=== PATIENT | male | born 1965 | race Caucasian/White ===

== ENCOUNTER 2016-11-11 06:47 | Emergency (ER) | payer OTHER ==
[2016-11-11 07:14] VITALS: BP 140/86
[2016-11-11] MEDS ORDERED: Acetaminophen 325 MG Tab PO ONE (07:28)
[2016-11-11] MEDS ORDERED: predniSONE 20 MG Tab PO ONE (07:28)
[2016-11-11] MEDS ORDERED: Ketorolac 60 MG/2 ML SDV IM ONE (07:28)
--- NOTE | 2016-11-11 07:36 | EDM.PDOC ---
ED HPI GENERAL MEDICAL PROBLEM - General Chief Complaint: Back Pain or Injury Stated Complaint: LOWER BACK PAIN Time Seen by Provider: 11/11/16 07:11 Source of Information: Reports: Patient, RN Notes Reviewed - History of Present Illness INITIAL COMMENTS - FREE TEXT/NARRATIVE: 51-year-old male comes in with severe right low back pain. He states he injured the back yesterday afternoon tightening lug bolts on the tire of a tractor. Sudden onset of pain in the right low back, sacroiliac area. The pain is constant although he can fine positions where it is not as bad. However sitting walking twisting aggravate the pain to where it is quite severe. Is not radiating down the lower leg. No peripheral numbness or tingling. 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 50 mg PO DAILY 03/09/14 [History] Aspirin 325 mg PO Q4HR PRN 06/12/14 [History] Hydrocodone/Acetaminophen [Vicodin 5-300 mg Tablet] 1 tab PO Q4HR PRN 06/12/14 [ History] Ibuprofen 200 mg PO Q6HR PRN 06/12/14 [History] Naproxen [Naprosyn] 500 mg PO Q12HR #14 tablet 11/11/16 [Rx] oxyCODONE HCl/Acetaminophen [Percocet 5-325 mg Tablet] 1 each PO Q6HR PRN #14 tablet 11/11/16 [Rx] Past Medical History - Past Health History Medical/Surgical History: Denies Medical/Surgical History Neurological History: Reports: Concussion Psychiatric History: Reports: Anxiety, Depression - Past Surgical History HEENT Surgical History: Reports: Tonsillectomy Other Neurological Surgeries/Procedures: c spine fracture Social & Family History - Tobacco Use Smoking Status *Q: Never Smoker Years of Tobacco use: 10 Second Hand Smoke Exposure: No - Caffeine Use Caffeine Use: Reports: Coffee - Alcohol Use Days Per Week of Alcohol Use: 3 Number of Drinks Per Day: 2 Total Drinks Per Week: 6 - Recreational Drug Use Recreational Drug Use: No Drug Use in Last 12 Months: Yes Recreational Drug Type: Reports: Marijuana/Hashish ED ROS GENERAL - Review of Systems Review Of Systems: See Below Constitutional: Denies: Fever, Chills HEENT: Reports: No Symptoms Respiratory: Denies: Shortness of Breath Cardiovascular: Denies: Chest Pain GI/Abdominal: Denies: Abdominal Pain, Nausea, Vomiting Musculoskeletal: Reports: Back Pain (right low back). Denies: Leg Pain Skin: Reports: No Symptoms Neurological: Denies: Numbness, Tingling ED EXAM,LOWER BACK PAIN/INJURY - Physical Exam Exam: See Below General Appearance: Alert, Moderate Distress Throat/Mouth: Normal Inspection Head: Atraumatic. No: Facial Swelling Neck: Supple, Full Range of Motion Respiratory/Chest: No Respiratory Distress, Lungs Clear Cardiovascular: Regular Rate, Rhythm Back Exam: Other (tender over right sacroiliac joint, back otherwise nontender) . No: Vertebral Tenderness Neurological: Alert, No Motor/Sensory Deficits Skin Exam: Warm, Dry, Normal Color Course - Vital Signs Last Recorded V/S: Last Vital Signs Temp 98.1 F 11/11/16 07:10 Pulse 71 11/11/16 07:10 Resp 18 11/11/16 07:10 BP 140/86 11/11/16 07:10 Pulse Ox 99 11/11/16 07:10 - Orders/Labs/Meds Meds: Medications Discontinued Medications Generic Name Dose Route Start Last Admin Trade Name Roland PRN Reason Stop Dose Admin Acetaminophen 975 mg 11/11/16 07:28 11/11/16 07:42 Tylenol PO 11/11/16 07:29 975 mg NOW ONE Administration Ketorolac Tromethamine 60 mg 11/11/16 07:28 11/11/16 07:39 Toradol IM 11/11/16 07:29 60 mg ONETIME ONE Administration Prednisone 40 mg 11/11/16 07:28 11/11/16 07:42 Prednisone PO 11/11/16 07:29 40 mg ONETIME ONE Administration Departure - Departure Time of Disposition: 07:29 Disposition: Home, Self-Care 01 Condition: Fair Clinical Impression: Back pain due to injury - Discharge Information Prescriptions: oxyCODONE HCl/Acetaminophen [Percocet 5-325 mg Tablet] 1 each PO Q6HR PRN #14 tablet PRN Reason: Pain Naproxen [Naprosyn] 500 mg PO Q12HR #14 tablet Instructions: Back Injury Prevention, [id number], Back Pain, Adult, Easy-to- Read Referrals: Kevin Gordon Jr, MD [Primary Care Provider] - Forms: ED Department Discharge Additional Instructions: rest back, no heavy lifting. alternate ice and heat as needed, Naprosyn 500 mg twice daily for pain and inflammation, prednisone steroid medication as prescribed for inflammation, Tylenol 3-4 times daily for extra pain relief or Percocet if needed for severe pain, do not drive or operate equipment when taking Percocet, do not take Tylenol and Percocet at the same time, consider a course of physical therapy to try to promote healing, see Dr. Gordon next week as planned
== END 2016-11-11 08:22 | disposition home or self-care (01) ==
LOC: JD.ED 06:47
DX: M54.5 Low back pain (principal); Z88.0 Allergy status to penicillin; Z79.82 Long term (current) use of aspirin; Z79.899 Other long term (current) drug therapy
CPT/HCPCS: 96372; 99283; A9270; J1885

== ENCOUNTER 2024-04-20 16:48 | Emergency (ER) | payer MEDICAID, OTHER ==
[2024-04-20] MEDS ORDERED: Naloxone 0.4 MG/ML SDV IVPUSH PRN (17:01)
[2024-04-20 17:03] VITALS: PULSE 96
[2024-04-20] MEDS: Sodium Chloride 0.9% 1,000 ML IV ONE (17:10)
[2024-04-20] MEDS: Ondansetron 4 MG/2 ML SDV IVPUSH ONE ×2 (17:10)
[2024-04-20] MEDS: HYDROmorphone 1 MG/ML Syringe IVPUSH ONE (17:11)
[2024-04-20 17:31] LABS: BASOPHILS PERCENT AUTO 0.1 % (0.0-1.0); EOSINOPHILS ABSOLUTE AUTO 0.2 K/mm3 (0.0-0.4); EOSINOPHILS PERCENT AUTO 1.1 % (0.0-6.0); HEMATOCRIT 55.3 % (42.0-52.0); HEMOGLOBIN 18.9 gm/dl (14.0-18.0); IMMATURE GRAN ABSOLUTE AUTO 0.13 K/mm3 (0.00-0.05); LYMPHOCYTES ABSOLUTE AUTO 0.9 K/mm3 (1.0-4.8); LYMPHOCYTES PERCENT AUTO 6.8 % (24.0-44.0); MEAN CORPUSCULAR HEMOGLOBIN 31.2 pg (28.0-32.0); MEAN CORPUSCULAR HGB CONC 34.2 g/dl (32.0-36.0); MEAN CORPUSCULAR VOLUME 91.3 fl (83.0-99.0); MEAN PLATELET VOLUME 9.5 fl (9.4-12.4); MONOCYTES PERCENT AUTO 7.6 % (0.0-8.0); NEUTROPHILS ABSOLUTE AUTO 11.3 K/mm3 (1.8-7.7); NEUTROPHILS PERCENT AUTO 83.4 % (41.0-71.0); PLATELET COUNT,PLT 254 K/mm3 (150-400); RED BLOOD CELL COUNT 6.06 M/mm3 (4.52-5.90); WHITE BLOOD CELL COUNT,WBC 13.48 K/mm3 (3.9-11.3)
[2024-04-20] MEDS: Iopamidol 612 MG/ML 100 ML Bottle IVPUSH ONE (18:05)
[2024-04-20 18:06] LABS: A/G RATIO 1.2 (1-2); ALBUMIN 3.8 g/dl (3.4-5.0); BUN/CREATININE RATIO 18.3 (14-18); CALCIUM 9.2 mg/dL (8.5-10.1); CREATININE 1.2 mg/dL (0.7-1.3); EST CRCL DRUG DOSING (CG) 68.85 mL/min; PROTEIN TOTAL,TP 7.1 g/dl (6.4-8.2)
[2024-04-20 18:59] VITALS: BP 155/97
[2024-04-20 19:04] LABS: APPEARANCE,URINE CLEAR (Clear); BILIRUBIN,URINE NEGATIVE (Negative); COLOR,URINE YELLOW (Yellow); GLUCOSE,URINE NEGATIVE (Negative); KETONES,URINE TRACE (Negative); LEUKOCYTE ESTERASE,URINE NEGATIVE (Negative); NITRITE,URINE NEGATIVE (Negative); OCCULT BLOOD,URINE NEGATIVE (Negative); PROTEIN,URINE TRACE (Negative); UROBILINOGEN,URINE 0.2 (0.2-1.0)
[2024-04-20 19:53] LABS: BACTERIA,URINE RARE /hpf (FEW); RBC,URINE 0-5 /hpf (0-5); SQUAMOUS EPITHELIAL CELLS,UR 0-5 /hpf (0-5); WBC,URINE 0-5 /hpf (0-5)
[2024-04-20 19:54] LABS: MUCUS,URINE FEW /hpf (FEW)
== END 2024-04-20 19:36 | disposition home or self-care (01) ==
LOC: JD.ED 16:48
DX: S20.212A Contusion of left front wall of thorax, initial encounter (principal); Z88.0 Allergy status to penicillin; Z79.82 Long term (current) use of aspirin; Z79.899 Other long term (current) drug therapy; W18.39XA Other fall on same level, initial encounter; Y93.89 Activity, other specified
CPT/HCPCS: 36415; 70450; 71045; 71260; 72125; 74177; 80053; 81001; 85025; 96361; 96374; 96375; 99285; J1171; J2405; J7030; Q9967

== ENCOUNTER 2024-04-28 13:22 | Emergency (ER) | payer MEDICAID ==
[2024-04-28 13:37] VITALS: BP 151/111; PULSE 82
== END 2024-04-28 15:40 | disposition left against medical advice (07) ==
LOC: JD.ED 13:22
DX: R07.81 Pleurodynia (principal); Z88.0 Allergy status to penicillin; Z79.899 Other long term (current) drug therapy; W19.XXXA Unspecified fall, initial encounter
CPT/HCPCS: 71101-26-RT; 71101-RT; 99282; 99283

== ENCOUNTER 2024-12-12 13:24 | Emergency (ER) | payer MEDICAID ==
[2024-12-12 15:29] VITALS: BP 136/96; PULSE 74
== END 2024-12-12 15:10 | disposition home or self-care (01) ==
LOC: JD.ED 13:24
DX: M25.512 Pain in left shoulder (principal); Z88.0 Allergy status to penicillin; W19.XXXA Unspecified fall, initial encounter
CPT/HCPCS: 70450; 70450-26; 72125; 72125-26; 73030-26-LT; 73030-LT; 73080-26-LT; 73080-LT; 73100-26-LT; 73100-LT; 99284

== ENCOUNTER 2024-12-17 17:52 | Emergency (ER) | payer MEDICAID ==
[2024-12-17 18:03] VITALS: PULSE 83
[2024-12-17] MEDS ORDERED: Sodium Chloride 0.9% 10 ML Syringe FLUSH PRN (18:11)
[2024-12-17 18:18] LABS: BASOPHILS ABSOLUTE AUTO 0.1 K/mm3 (0.0-0.2); BASOPHILS PERCENT AUTO 0.4 % (0.0-1.0); EOSINOPHILS ABSOLUTE AUTO 0.2 K/mm3 (0.0-0.4); EOSINOPHILS PERCENT AUTO 1.2 % (0.0-6.0); IMMATURE GRAN ABSOLUTE AUTO 0.19 K/mm3 (0.00-0.05); IMMATURE GRAN PERCENT AUTO 1.4 % (0.0-0.4); LYMPHOCYTES ABSOLUTE AUTO 1.4 K/mm3 (1.0-4.8); LYMPHOCYTES PERCENT AUTO 10.0 % (24.0-44.0); MEAN PLATELET VOLUME 9.4 fl (9.4-12.4); MONOCYTES ABSOLUTE AUTO 1.0 K/mm3 (0.0-0.8); MONOCYTES PERCENT AUTO 7.6 % (0.0-8.0); NEUTROPHILS ABSOLUTE AUTO 10.8 K/mm3 (1.8-7.7); NEUTROPHILS PERCENT AUTO 79.4 % (41.0-71.0); NRBC ABSOLUTE 0.00 (0.00-0.02); NRBC PERCENT 0.0 % (0.0-0.2); PLATELET COUNT,PLT 263 K/mm3 (150-400); RED BLOOD CELL COUNT 5.72 M/mm3 (4.52-5.90); WHITE BLOOD CELL COUNT,WBC 13.56 K/mm3 (3.9-11.3)
[2024-12-17] MEDS: Alum Hydrox/Mag Hydrox/Simeth 30 ML, Lidocaine 2% 15 ML PO ONE (18:35)
[2024-12-17 18:54] LABS: A/G RATIO 1.1 (1-2); ALANINE AMINOTRANSFERASE,ALT 58.0 U/L (16-63); ASPARTATE AMNIOTRANSFERASE,AST 33.0 U/L (15-37); BILIRUBIN TOTAL 0.6 mg/dL (0.2-1.0); BLOOD UREA NITROGEN,BUN 26.0 mg/dL (7-18); CARBON DIOXIDE,CO2 29.0 mEq/L (21-32); CHLORIDE,CL 104.0 mEq/L (98-107); CREATININE 1.4 mg/dL (0.7-1.3); EST CRCL DRUG DOSING (CG) 60.82 mL/min; ESTIMATED GFR 57.0 mL/min (>60); GLUCOSE RANDOM 110.0 mg/dL (70-99); POTASSIUM,K 4.8 mEq/L (3.5-5.1); PROTEIN TOTAL,TP 6.4 g/dl (6.4-8.2); SODIUM,NA 142.0 mEq/L (136-145); TROPONIN I HIGH SENSITIVITY 15.0 pg/mL (<=76)
[2024-12-17 20:50] VITALS: BP 116/74
== END 2024-12-17 20:30 | disposition home or self-care (01) ==
LOC: JD.ED 17:52
DX: R07.89 Other chest pain (principal); D72.829 Elevated white blood cell count, unspecified; N28.9 Disorder of kidney and ureter, unspecified; R03.0 Elevated blood-pressure reading, without diagnosis of hypertension; Z88.0 Allergy status to penicillin; Z79.899 Other long term (current) drug therapy
CPT/HCPCS: 36415; 71045; 76705; 80053; 83690; 83880; 84484; 85025; 93005; 99285; A9270; J3490

== ENCOUNTER 2025-01-08 18:02 | Emergency (ER) | payer MEDICAID ==
[2025-01-08] MEDS: Ketorolac 60 MG/2 ML SDV IM ONE (19:43)
[2025-01-08 20:42] VITALS: BP 132/91; PULSE 79
== END 2025-01-08 20:35 | disposition home or self-care (01) ==
LOC: JD.ED 18:02
DX: M70.21 Olecranon bursitis, right elbow (principal); F17.200 Nicotine dependence, unspecified, uncomplicated; I10 Essential (primary) hypertension; Z88.0 Allergy status to penicillin; Z90.89 Acquired absence of other organs
CPT/HCPCS: 20605; 73080; 96372; 99283; J1885; J2003